=== PATIENT | male | born 1950 | race Two or more races ===

== ENCOUNTER 2024-09-23 10:00 | Emergency (ER) | payer OTHER ==
[~2024-09-23] VITALS: Ht 180.3 cm; Wt 83.9 kg
[2024-09-23] MEDS ORDERED: TRIJARDY XR 251 EACH PO (10:30)
[2024-09-23] MEDS ORDERED: UROXATRAL10 MG PO (10:30)
== END 2024-09-23 11:46 | disposition home or self-care (01) ==
LOC: ER 10:02 → EDBD 10:02 → ER 10:20
DX: B37.42 Candidal balanitis (principal); E11.9 Type 2 diabetes mellitus without complications; Z79.84 Long term (current) use of oral hypoglycemic drugs